=== PATIENT | male | born 1960 | race Caucasian/White ===

== ENCOUNTER 2017-12-26 17:04 | Emergency (ER) | payer OTHER, SELFPAY ==
[2017-12-26 17:06] VITALS: BP 126/77; PULSE 83; RESP 16; TEMP 36.8; O2SAT 95
[2017-12-26] MEDS: Erythromycin Ophth Oint 3.5 GM TUBE OS (17:28)
--- NOTE | 2017-12-26 17:34 | W.ED.GENAD ---
Discharge Plan Disposition Patient Disposition: HOME Condition: Good Discharge Details Chief Complaint: EyeProblem Clinical Impression: Corneal abrasion Primary Care Provider: Janette Benitez ED Provider: Michael Salcido Home Meds and New Rx's Prescriptions: No Action No Known Home Meds RF: 0 Discharge Instructions Instructions: Corneal Abrasion (ED) Additional Instructions: Please use the erythromycin ointment 3 times daily. 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 If you notice any significant vision changes, worsening pain, fever, chills, discharge please return immediately. Referrals: [facility] [[facility]] - Discharge Data Discharge Date/Time-TO BE ENTERED AT DEPARTURE: 12/26/17 18:00 Medical Decision Making This is a very pleasant 57-year-old male with no medical who presented since a sensation in his left eye that occurred after he was working with brush. He does not recall getting anything in his eye in particular. Physical exam demonstrates a small corneal abrasion at the corneal abrasion noted in the left eye at the 11 o'clock position negative Avery sign. Eversion of the upper and lower lids demonstrate no evidence of retained foreign body. The patient's pain is completely resolved with the application of tetracaine. He is not a contact lens wearer. We will give her erythromycin ointment for soothing of the eye pain. He sees Dr. Schultz on a regular basis and will follow up with him probably on Thursday. We discussed red flags which to return the patient understands. HPI General Date/Time Provider Initiated Documentation: 12/26/17 17:28. HPI Narrative: This is a 57-year-old male whose immunizations are up-to-date including his tetanus, who is not a contact lens wearer, who presents for sensation of foreign body in his left eye. Patient states that he was working with some brush earlier today and felt that something may have gotten into his left eye. He tried washing it out multiple times at home, but continues to feel a foreign body sensation in his left eye. He denies any blurry vision or difficulty seeing. He denies any other complaints. Related Data Home Medications Medication Instructions Recorded Confirmed Unknown [No Known Home Meds] 03/29/17 12/26/17 Allergies Allergy/AdvReac Type Severity Reaction Status Date / Time No Known Allergies Allergy Unverified 12/26/17 17:10 General Stated Complaint: EyeProblem TONG: 4 Review of Systems Review of Systems All systems reviewed & are unremarkable except as noted in HPI and below PFSH Family History Mother Diabetes Thyroid disorder Father Essential hypertension Social History Smoking/Tobacco Use Status: Never Surgical History Appendectomy Bilateral meniscal tears Colonoscopy - IV Sedation (02/08/16) Exam Narrative Exam Narrative: 1.Const: Well-nourished, Well-developed, appearing stated age 2.Eyes: PERRL, no conjunctival injection, and symmetrical lids. Left eye: EOMI, PERRL, Peripheral vision intact. No nystagmus. Fundoscopic exam shows normal optic discs and normal vasculature. No external signs of preseptal cellulitis, no redness around the eye, no proptosis. No hyphema, no signs of trauma around the eye, no periorbital emphysema. Fluorescein exam does show evidence of a small corneal abrasion at the 11 o'clock position. No evidence of rust ring or retained foreign body. Negative Avery sign. Visual acuity is normal in both eyes 3.ENT: Atraumatic external nose and ears. Moist MM. Neck: Symmetric, trachea midline, No thyromegaly. 4.CVS: +S1/S2, No murmurs or gallops. Peripheral pulses 2+ and equal in all extremities. Brisk capillary refill in all extremities. 5.RESP: Unlabored respiratory effort. Clear to auscultation bilaterally. No wheezes rales or rhonchi 6.GI: Soft, Nontender/Nondistended, No hepatosplenomegaly. No guarding or rebound. 7.MSK: Normocephalic/Atraumatic, Extremities w/o deformity or ttp No cyanosis or clubbing, Normal movement of all extremities 8.Skin: Warm, Dry. No rashes or lesions. 9.Neuro: layer off II-XII grossly intact. Sensation grossly intact, no focal neurologic deficits. 10.Psych: (AAO) x3. Appropriate mood and affect Course Vital Signs Temperature 36.8 C 12/26/17 17:06 Pulse 83 12/26/17 17:06 Respiratory Rate 16 12/26/17 17:06 Blood Pressure 126/77 12/26/17 17:06 Pulse Oximetry 95 12/26/17 17:06 Temperature 36.8 C 12/26/17 17:06 Temperature Source Skin 12/26/17 17:06 Pulse 83 12/26/17 17:06 Respiratory Rate 16 12/26/17 17:06 Respiratory Effort Non-Labored 12/26/17 17:09 Blood Pressure 126/77 12/26/17 17:06 Pulse Oximetry 95 12/26/17 17:06 Pain Level 6 12/26/17 17:06
--- NOTE | 2017-12-26 17:38 | ED.GENADUL_ITS ---
Discharge Plan Disposition Patient Disposition: HOME Condition: Good Discharge Details Chief Complaint: EyeProblem Clinical Impression: Corneal abrasion Primary Care Provider: Janette Benitez ED Provider: Mihcael Salcido Home Meds and New Rx's Prescriptions: No Action No Known Home Meds RF: 0 Discharge Instructions Instructions: Corneal Abrasion (ED) Additional Instructions: Please use the erythromycin ointment 3 times daily. 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 Schultz. If you notice any significant vision changes, worsening pain, fever, chills, discharge please return immediately. Referrals: [facility] [[facility]] - Discharge Data Discharge Date/Time-TO BE ENTERED AT DEPARTURE: 12/26/17 18:00 Medical Decision Making This is a very pleasant 57-year-old male with no medical who presented since a sensation in his left eye that occurred after he was working with brush. He does not recall getting anything in his eye in particular. Physical exam demonstrates a small corneal abrasion at the corneal abrasion noted in the left eye at the 11 o'clock position negative Avery sign. Eversion of the upper and lower lids demonstrate no evidence of retained foreign body. The patient's pain is completely resolved with the application of tetracaine. He is not a contact lens wearer. We will give her erythromycin ointment for soothing of the eye pain. He sees Dr. Schultz on a regular basis and will follow up with him probably on Thursday. We discussed red flags which to return the patient understands. HPI General Date/Time Provider Initiated Documentation: 12/26/17 17:28 . HPI Narrative: This is a 57-year-old male whose immunizations are up- to-date including his tetanus, who is not a contact lens wearer, who presents for sensation of foreign body in his left eye. Patient states that he was working with some brush earlier today and felt that something may have gotten into his left eye. He tried washing it out multiple times at home, but continues to feel a foreign body sensation in his left eye. He denies any blurry vision or difficulty seeing. He denies any other complaints. Related Data Home Medications Medication Instructions Recorded Confirmed Unknown [No Known Home Meds] 03/29/17 12/26/17 Allergies Allergy/AdvReac Type Severity Reaction Status Date / Time No Known Allergies Allergy Unverified 12/26/17 17:10 General Stated Complaint: EyeProblem TONG: 4 Review of Systems Review of Systems All systems reviewed & are unremarkable except as noted in HPI and below PFSH Family History Mother Diabetes Thyroid disorder Father Essential hypertension Social History Smoking/Tobacco Use Status: Never Surgical History Appendectomy Bilateral meniscal tears Colonoscopy - IV Sedation (02/08/16) Exam Narrative Exam Narrative: 1.Const: Well-nourished, Well-developed, appearing stated age 2.Eyes: PERRL, no conjunctival injection, and symmetrical lids. Left eye: EOMI , PERRL, Peripheral vision intact. No nystagmus. Fundoscopic exam shows normal optic discs and normal vasculature. No external signs of preseptal cellulitis, no redness around the eye, no proptosis. No hyphema, no signs of trauma around the eye, no periorbital emphysema. Fluorescein exam does show evidence of a small corneal abrasion at the 11 o'clock position. No evidence of rust ring or retained foreign body. Negative Avery sign. Visual acuity is normal in both eyes 3.ENT: Atraumatic external nose and ears. Moist MM. Neck: Symmetric, trachea midline, No thyromegaly. 4.CVS: +S1/S2, No murmurs or gallops. Peripheral pulses 2+ and equal in all extremities. Brisk capillary refill in all extremities. 5.RESP: Unlabored respiratory effort. Clear to auscultation bilaterally. No wheezes rales or rhonchi 6.GI: Soft, Nontender/Nondistended, No hepatosplenomegaly. No guarding or rebound. 7.MSK: Normocephalic/Atraumatic, Extremities w/o deformity or ttp No cyanosis or clubbing, Normal movement of all extremities 8.Skin: Warm, Dry. No rashes or lesions. 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 Sensation grossly intact, no focal neurologic deficits. 10.Psych: (AAO) x3. Appropriate mood and affect Course Vital Signs Temperature 36.8 C 12/26/17 17:06 Pulse 83 12/26/17 17:06 Respiratory Rate 16 12/26/17 17:06 Blood Pressure 126/77 12/26/17 17:06 Pulse Oximetry 95 12/26/17 17:06 Temperature 36.8 C 12/26/17 17:06 Temperature Source Skin 12/26/17 17:06 Pulse 83 12/26/17 17:06 Respiratory Rate 16 12/26/17 17:06 Respiratory Effort Non-Labored 12/26/17 17:09 Blood Pressure 126/77 12/26/17 17:06 Pulse Oximetry 95 12/26/17 17:06 Pain Level 6 12/26/17 17:06
== END 2017-12-26 18:00 | disposition home or self-care (01) ==
LOC: ER 17:45
PROVIDERS: Emergency Provider Student in an Organized Health Care Education/Training Program; PCP Family Medicine
DX: S05.02XA Injury of conjunctiva and corneal abrasion without foreign body, left eye, initial encounter (principal); X58.XXXA Exposure to other specified factors, initial encounter; Y93.H2 Activity, gardening and landscaping
CPT/HCPCS: 99283